=== PATIENT | female | born 1990 | race Two or more races ===

== ENCOUNTER 2021-08-17 02:03 | Emergency (ER) | payer OTHER ==
[~2021-08-17] VITALS: Ht 175.3 cm; Wt 65.8 kg
[2021-08-17 02:08] VITALS: BP 154/81
--- NOTE | 2021-08-17 02:08 | NUR ---
Dr. Nguyen examining patient.
--- NOTE | 2021-08-17 02:12 | NUR ---
PT AMBULATED TO BED 8
--- NOTE | 2021-08-17 02:17 | NUR ---
PT AMBULATED TO THE BATHROOM FOR URINE COLLECTION
--- NOTE | 2021-08-17 02:34 | NUR ---
PT COMPLAINING OF HAVING DIFFICULTY CATCHING BREATH, HAS SOMETHING STUCK IN THROAT, AND "NOT FEELING RIGHT". ERMD MADE AWARE.
[2021-08-17] MEDS ORDERED: FAMOTIDINE 20 MG TAB PO ONE (02:35)
[2021-08-17] MEDS ORDERED: LORazepam 1 MG TAB PO ONE (02:35)
[2021-08-17 02:39] LABS: BASOPHILS % (AUTO) 0.6 % (0.0-2.0); EOSINOPHILS # (AUTO) 0.3 K/uL (0-0.4); EOSINOPHILS % (AUTO) 3.7 % (0.0-4.0); HEMATOCRIT 31.7 % (36-48); HEMOGLOBIN 10.5 g/dL (12.0-16.0); LYMPHOCYTES # (AUTO) 4.2 K/uL (2.5-16.5); LYMPHOCYTES % (AUTO) 51.6 % (20.5-51.1); MEAN CORPUSCULAR HEMOGLOBIN 28 pg (27-31); MEAN CORPUSCULAR HGB CONC 33 g/dL (33-37); MEAN CORPUSCULAR VOLUME 84.7 fL (80-94); MONOCYTES # (AUTO) 0.9 K/uL (0.8-1.0); MONOCYTES % (AUTO) 10.6 % (1.7-9.3); NEUTROPHILS # (AUTO) 2.7 K/uL (1.8-7.7); NEUTROPHILS % (AUTO) 33.5 % (42.2-75.2); PLATELET COUNT (AUTO) 328 K/uL (140-450); RED BLOOD CELL COUNT(AUTO) 3.75 MIL/uL (4.20-5.40); RED CELL DISTRIBUTION WIDTH 16.6 % (11.6-13.7); WHITE BLOOD COUNT (AUTO) 8.1 K/uL (4.8-10.8)
[2021-08-17 03:18] LABS: ALBUMIN 3.8 g/dL (3.4-5.0); ANION GAP 12.2 (8-16); ASPARTATE AMINOTRANSFERASE 12 U/L (15-37); CARBON DIOXIDE 25.8 mmol/L (21-32); CHLORIDE 108 mmol/L (98-107); CREATININE 0.6 mg/dL (0.6-1.3); GFR ARICAN-AMERICAN 150 mL/min (>90); GLUCOSE 115 mg/dL (74-106); SODIUM SERUM 143 mmol/L (136-145); THYROID STIMULATING HORMONE 6.16 uIU/mL (0.34-3.74); TOTAL BILIRUBIN 0.2 mg/dL (0.0-1.0); UREA NITROGEN, BLOOD 8 mg/dL (7-18)
[2021-08-17] MEDS ORDERED: LEVO0.0511 PO (03:36)
--- NOTE | 2021-08-17 03:38 | NUR ---
Dr. Nguyen examining patient.
--- NOTE | 2021-08-17 03:49 | NUR ---
PT ASSESSMENT COMPLETED BY RAAD. NO NURSING INTERVENTIONS REQUIRED AT THIS TIME.
[2021-08-17 03:56] VITALS: BP 119/68
--- NOTE | 2021-08-17 03:56 | NUR ---
Patient discharged with v/s stable. Written and verbal after care instructions given and explained. Patient alert, oriented and verbalized understanding of instructions. Ambulatory with steady gait. All questions addressed prior to discharge. ID band removed. Patient advised to follow up with PMD. Rx of LEVOTHYROZINE SODIUM given. Patient educated on indication of medication including possible reaction and side effects. Opportunity to ask questions provided and answered. D/C COMPLETED BY RAAD TSANG.
== END 2021-08-17 03:56 | disposition home or self-care (01) ==
LOC: MED 02:03
DX: F41.9 Anxiety disorder, unspecified (principal); E03.9 Hypothyroidism, unspecified; Z79.899 Other long term (current) drug therapy
CPT/HCPCS: 36415; 71045; 80053; 84443; 84484; 85025; 93005; 99285; Q0092